=== PATIENT | female | born 1965 | race Caucasian/White ===

== ENCOUNTER 2018-11-21 14:57 | Emergency (ER) | payer OTHER, SELFPAY ==
[2018-11-21 15:09] VITALS: BP 133/80; PULSE 73; RESP 18; TEMP 36.9; O2SAT 99
--- NOTE | 2018-11-21 15:23 | DI.RAD_ITS ---
SYMPTOM/DIAGNOSIS: FELL, ? FX, PAIN LEFT KNEE: Four views were obtained and show moderately displaced, moderately comminuted fracture of the lateral tibial plateau. This appears to extend into the intercondylar eminence of the tibia. No other fracture is seen. Fat fluid level noted in the patellar bursa.
[2018-11-21] MEDS: Ibuprofen 800 MG TAB PO (15:33)
--- NOTE | 2018-11-21 16:17 | DI.VRAD_ITS ---
EXAM: XR Left Knee, 3 Views EXAM DATE/TIME: 11/21/2018 3:57 PM CLINICAL HISTORY: 53 years old, female; Injury or trauma; Fall; Initial encounter; Sprain or strain; Patella or knee; Left TECHNIQUE: Imaging protocol: XR Left knee 3 views. COMPARISON: No relevant prior studies available. FINDINGS: Bones/joints: Comminuted fracture of the lateral tibial plateau with intra-articular extension, displacement, and impaction with approximately 3.5 mm of subchondral bone step-off. Fracture extends into the lateral tibial spine and probably into the proximal tibiofibular joint. Other findings: Large lipohemarthrosis. IMPRESSION: Comminuted, displaced and depressed fracture of the lateral tibial plateau.. Dictated and Authenticated by: Kunal Dalton MD. Ordering:AKIRA Jimenez MD
--- NOTE | 2018-11-21 16:19 | W.ED.GENAD ---
Discharge Plan Disposition Patient Disposition: HOME Condition: Good Discharge Details Chief Complaint: Orthopedic Clinical Impression: Fracture of left tibial plateau Primary Care Provider: [facility],Local ED Provider: Tony [facility] Home Meds and New Rx's Prescriptions: New ibuprofen [Motrin IB] 200 MG tablet 800 mg PO Q6H 5 Days Qty: 80 RF: 0 Discharge Instructions Instructions: Knee Immobilizer (ED) Additional Instructions: X-ray shows evidence of a tibial plateau fracture. Please remain nonweightbearing and use her crutches at all times until you follow-up with your orthopedic surgeon. Please take Tylenol and Motrin as needed for pain and swelling. Please use ice as often as possible. If you notice any worsening of your symptoms, or any new symptoms such as vomiting, diarrhea, fever, chills, shortness of breath, chest pain, numbness, weakness, or fainting , please return immediately to the emergency department for reevaluation. Please follow up with your primary care provider as soon as possible for reassessment and reevaluation. As always, it was a pleasure participating in your medical care today. Discharge Data Discharge Date/Time-TO BE ENTERED AT DEPARTURE: 11/21/18 16:49 Medical Decision Making This is a very pleasant 53-year-old female with no significant past medical history who presents today for evaluation of left knee pain. The patient was skiing, had a mobile, and felt a notable pressure and significant force down onto her left knee. She had immediate pain after that, was required to be taken off the mountain with assistance. She has been unable to ambulate. Pain is worse with movement, and palpation of the proximal anterior tibial plateau. Signs and symptoms are concerning for a tibial plateau fracture versus other acute process. X-rays were ordered, and demonstrated confirmation with the presence of a comminuted displaced depressed fracture of the lateral tibial plateau. Dr. Peterson was having at that time, I did review the images and plan with him, he agrees with the current plan. We will immobilize patient's leg, and take the patient nonweightbearing with crutches, recommend continued NSAIDs at home and close orthopedic follow-up at her home in [place]. We discussed red flags for which to return the patient understands. With a normal neurovascular exam, I do not feel that any other acute management is indicated at this time. I have extensively reviewed the treatment plan and discharge instructions with the patient and their family. I have addressed all patient concerns at this time. The patient and family was made aware of what symptoms to monitor for that would warrant a return to the emergency department. Discussed the plan with the patient and family, they demonstrate verbal understanding and agreement with our assessment and plan at this time. FINDINGS: Bones/joints: Comminuted fracture of the lateral tibial plateau with intra-articular extension, displacement, and impaction with approximately 3.5 mm of subchondral bone step-off. Fracture extends into the lateral tibial spine and probably into the proximal tibiofibular joint. Other findings: Large lipohemarthrosis. IMPRESSION: Comminuted, displaced and depressed fracture of the lateral tibial plateau.. Dictated and Authenticated by: Kunal Dalton MD. Ordering:AKIRA Jimenez MD HPI General Date/Time Provider Initiated Documentation: 11/21/18 15:13. HPI Narrative: This is a 53-year-old female with past medical history of right humerus fracture, who presents for left knee pain. The patient states that she was skiing, and came down hard on a mobile and felt sudden notable pain in her left knee. She was unable to ambulate after this, and was brought down off the mountain. She has been using ice for the knee since then. She has not taken any Tylenol or Motrin. She denies any pain in her foot, hip, chest abdomen or pelvis. She did not fall and she did not hit her head. Pain is made worse with movement. Improved by nothing. Pain is located in the anterior component of her fallon at the most proximal aspect of the tibia. No other complaints modifying factors at this time. No blood thinner use Related Data Home Medications Medication Instructions Recorded Confirmed ibuprofen [Motrin Ib] 800 mg PO Q6H 5 Days #80 tab 11/21/18 Previous Rx's Medication Instructions Recorded ibuprofen [Motrin Ib] 800 mg PO Q6H 5 Days #80 tab 11/21/18 Allergies Allergy/AdvReac Type Severity Reaction Status Date / Time No Known Allergies Allergy Unverified 11/21/18 15:08 General Stated Complaint: Orthopedic YANELI: 4 Review of Systems Review of Systems All systems reviewed & are unremarkable except as noted in HPI and below PFSH Social History Alcohol Intake: never Drug use: Never Substance use type: does not use Exam Narrative Exam Narrative: 1.Const: Well-nourished, Well-developed, appearing stated age 2.Eyes: PERRL, no conjunctival injection, and symmetrical lids. 3.ENT: Atraumatic external nose and ears. Moist MM. Neck: Symmetric, trachea midline, No thyromegaly. 4.CVS: +S1/S2, No murmurs or gallops. Peripheral pulses 2+ and equal in all extremities. Brisk capillary refill in all extremities. 5.RESP: Unlabored respiratory effort. Clear to auscultation bilaterally. No wheezes rales or rhonchi 6.GI: Soft, Nontender/Nondistended, No hepatosplenomegaly. No guarding or rebound. 7.MSK: Normocephalic, Extremities w/o deformity left knee: However there is notable swelling around the knee itself. No cyanosis or clubbing. Notable tender anterior coronary on into the tibial plateau. No tenderness over the patella. Mild tenderness with varus and valgus stressing. No joint line to the anterior and posterior drawer testing. Worsening pain with Juan's test. Sensation intact distal to the injury site, dorsalis pedis and posterior tibial pulse +2 bilaterally. No pain in the foot or hip. 8.Skin: Warm, Dry. No rashes or lesions. 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 Sensation grossly intact, no focal neurologic deficits. 10.Psych: (AAO) x3. Appropriate mood and affect Course Vital Signs Temperature 36.9 C 11/21/18 15:09 Pulse 73 11/21/18 15:09 Respiratory Rate 18 11/21/18 15:09 Blood Pressure 133/80 11/21/18 15:09 Pulse Oximetry 99 11/21/18 15:09 Temperature 36.9 C 11/21/18 15:09 Temperature Source Temporal Artery Scan 11/21/18 15:09 Pulse 73 11/21/18 15:09 Respiratory Rate 18 11/21/18 15:09 Respiratory Effort 11/21/18 15:09 Blood Pressure 133/80 11/21/18 15:09 Blood Pressure Position Supine 11/21/18 15:09 Pulse Oximetry 99 11/21/18 15:09 Oxygen Delivery Method Room Air 11/21/18 15:09 Oxygen Flow Rate 0 11/21/18 15:09 Pain Level 4 11/21/18 15:20
== END 2018-11-21 16:49 | disposition home or self-care (01) ==
PROVIDERS: Emergency Provider Student in an Organized Health Care Education/Training Program
DX: S82.142A Displaced bicondylar fracture of left tibia, initial encounter for closed fracture (principal); V00.322A Snow-skier colliding with stationary object, initial encounter
CPT/HCPCS: 29505; 73562; 99283; 99282; E0114; L1830; L4361